=== PATIENT | male | born 1945 | race African-American/Black ===

== ENCOUNTER 2016-09-15 11:44 | Emergency (ER) | payer MEDICARE, OTHER ==
[~2016-09-15 11:44] MED LIST: ACET500CAP PO; ALTACE10 MG PO; ASAB PO; ASAEC PO; CAT1 PO; CEFT5 PO; COREG25 PO; COZ50 PO; DEMA20 PO; FERROUS SULF325 M1 PO; FLOMAX4 PO; FOLIC PO; HUMULIN PEN SC; HUMULIN R1 ML SC; HUMULIN SC; INSNOV7030 SC; INSNOVR; INSNOVR SC; KDUR20 PO; KLOR-CON M2020 MEQ PO; LANTUSCART SC; MULTIVITAMI1 PO; NEPHRO PO; NORV10 PO; NORV5 PO; NOVOLOG SC; PEP20 PO; PHOSLO PO; PRAVAC PO; PRAVACHOL40 MG PO; PROVHFA INH; RENVELA800 MG PO; ROCALTROL0.5 MCG PO; SODBICAR10 PO; SUPER B-100 PO; SURBEX-T1 TAB PO; TRAZ50 PO; TUMS E-X750 M2 PO; TUMSROLL PO; ZEMPLAR2 MCG/ML IV
[2016-09-15 13:06] LABS: BASOPHILS 0.4 %; BASOPHILS ABSOLUTE 0.03 10/3/uL (0.0-0.16); EOSINOPHILS ABSOLUTE 0.08 10/3/uL (0.0-0.53); ER CBC TAT 0 Hrs 05 Mins; HEMOGLOBIN 10.9 g/dL (13.6-17.8); IMMATURE GRANULOCYTES 0.1 %; IMMATURE GRANULOCYTES ABSOLUTE 0.01 10/3/uL (0.0-0.11); LYMPHOCYTES 37.4 %; LYMPHOCYTES ABSOLUTE 2.85 10/3/uL (0.67-4.30); MEAN CORPUS HGB CONC 34.4 g/dL (32.0-36.0); MEAN CORPUSCULAR HEMOGLOB 33.3 pg (26.0-34.0); MEAN PLATELET VOLUME 10.7 fL (9.2-13.0); MONOCYTES 7.2 %; MONOCYTES ABSOLUTE 0.55 10/3/uL (0.21-1.20); NEUTROPHILS 53.9 %; PLATELET COUNT 112 10/3/uL (150-400); RBC DISTRIBUTION WIDTH 14.1 % (12.0-16.0); RED CELL COUNT 3.27 10/6/uL (4.7-6.1); WHITE BLOOD CELLS 7.6 10/3/uL (4.5-10.5)
[2016-09-15 13:09] LABS: HEMATOCRIT 31.7 % (40.0-51.0); MANUAL DIFF NO %; MEAN CORPUSCULAR VOLUME 96.9 fL (80-100)
[2016-09-15 13:17] LABS: CALCIUM, SERUM 8.6 MG/DL (8.5-10.4); CHLORIDE, SERUM 101 MMOL/L (96-112); CO2 (CARBON DIOXIDE) 29 MMOL/L (24-34); GFR AFRICAN AMERICAN 5 ML/MIN (>=60); GFR NON AFRICAN AMERICAN 4 ML/MIN (>=60); GLUCOSE, SERUM 213 MG/DL (60-99); POTASSIUM, SERUM 4.5 MMOL/L (3.5-5.3); SODIUM, SERUM 137 MMOL/L (135-148)
[2016-09-15 13:18] LABS: BUN (BLOOD UREA NITROGEN) 71 MG/DL (6-23)
[2016-12-13] MEDS ORDERED: NORV10 PO (22:50)
[2016-12-13] MEDS ORDERED: LIPITOR20 PO (22:50)
[2016-12-13] MEDS ORDERED: LEVEMIR SC (22:51)
[2016-12-13] MEDS ORDERED: COREG25 PO (22:51)
[2016-12-13] MEDS ORDERED: CAT1 PO (22:51)
[2016-12-13] MEDS ORDERED: NOVOLOG SC (22:51)
[2016-12-13] MEDS ORDERED: ACET500CAP PO (22:52)
[2016-12-13] MEDS ORDERED: *UNABLE1 (22:52)
[2017-01-06] MEDS ORDERED: MULTIVIT/MIN PO (15:05)
[2017-01-06] MEDS ORDERED: ASAB PO (15:06)
== END 2016-09-15 23:49 | disposition home or self-care (01) ==
LOC: ER 11:44
PROVIDERS: Nurse Practitioner Family
DX: H66.91 Otitis media, unspecified, right ear (principal); M25.461 Effusion, right knee; I12.9 Hypertensive chronic kidney disease with stage 1 through stage 4 chronic kidney disease, or unspecified chronic kidney disease; E11.22 Type 2 diabetes mellitus with diabetic chronic kidney disease; N18.9 Chronic kidney disease, unspecified; E11.40 Type 2 diabetes mellitus with diabetic neuropathy, unspecified; E11.319 Type 2 diabetes mellitus with unspecified diabetic retinopathy without macular edema; D64.9 Anemia, unspecified; Z87.01 Personal history of pneumonia (recurrent); Z87.442 Personal history of urinary calculi; Z99.2 Dependence on renal dialysis; Z87.891 Personal history of nicotine dependence; Z88.2 Allergy status to sulfonamides; Z79.4 Long term (current) use of insulin; Z79.82 Long term (current) use of aspirin; Z79.899 Other long term (current) drug therapy; W19.XXXA Unspecified fall, initial encounter
CPT/HCPCS: 70450; 73560-RT; 80048; 85025; 87040; 93005; 99284

== ENCOUNTER 2017-01-09 10:00 | Day surgery (SDC) | payer MEDICARE, OTHER ==
[~2017-01-09] VITALS: Ht 180.3 cm; Wt 59.0 kg
[2017-01-09 07:15] LABS: HEMOGLOBIN 12.3 g/dL (13.6-17.8)
[2017-01-09 07:20] LABS: HEMATOCRIT 36.6 % (40.0-51.0)
[2017-01-09 07:29] LABS: BUN (BLOOD UREA NITROGEN) 35 MG/DL (6-23); CALCIUM, SERUM 9.6 MG/DL (8.5-10.4); CHLORIDE, SERUM 100 MMOL/L (96-112); CO2 (CARBON DIOXIDE) 29 MMOL/L (24-34); CREATININE 9.59 MG/DL (0.70-1.30); GFR AFRICAN AMERICAN 6 ML/MIN (>=60); GFR NON AFRICAN AMERICAN 5 ML/MIN (>=60); GLUCOSE, SERUM 180 MG/DL (60-99); POTASSIUM, SERUM 4.4 MMOL/L (3.5-5.3); SODIUM, SERUM 137 MMOL/L (135-148)
[~2017-01-09 10:00] MED LIST changes: +*UNABLE1; +LEVEMIR SC; +LIPITOR20 PO; +MULTIVIT/MIN PO
== END 2017-01-09 23:59 | disposition home health service (06) ==
LOC: SDC 10:00
PROVIDERS: Ophthalmology
PROC: 08RJ3JZ Replacement of Right Lens with Synthetic Substitute, Percutaneous Approach (ICD-10-PCS; principal; 2017-01-09 08:30)
DX: H25.11 Age-related nuclear cataract, right eye (principal); I12.9 Hypertensive chronic kidney disease with stage 1 through stage 4 chronic kidney disease, or unspecified chronic kidney disease; E11.22 Type 2 diabetes mellitus with diabetic chronic kidney disease; N18.9 Chronic kidney disease, unspecified; E78.00 Pure hypercholesterolemia, unspecified; D64.9 Anemia, unspecified; Z88.2 Allergy status to sulfonamides; Z87.891 Personal history of nicotine dependence; Z98.42 Cataract extraction status, left eye; Z98.890 Other specified postprocedural states; Z79.82 Long term (current) use of aspirin; Z79.899 Other long term (current) drug therapy
CPT/HCPCS: 80048; 82962; 85014; 85018; J2405; V2787